=== PATIENT | male | born 1975 | race African-American/Black ===

== ENCOUNTER 2016-10-09 18:08 | Emergency (ER) | payer OTHER | END 2016-10-09 18:36 | disposition home or self-care (01) | LOC: BURERS 18:08 | DX: K40.90 Unilateral inguinal hernia, without obstruction or gangrene, not specified as recurrent (principal); E11.9 Type 2 diabetes mellitus without complications; J45.909 Unspecified asthma, uncomplicated; E78.5 Hyperlipidemia, unspecified; J44.9 Chronic obstructive pulmonary disease, unspecified; I11.0 Hypertensive heart disease with heart failure; I50.9 Heart failure, unspecified; I42.9 Cardiomyopathy, unspecified; Z87.891 Personal history of nicotine dependence | CPT/HCPCS: 99283 ==

== ENCOUNTER 2017-03-24 09:48 | Emergency (ER) | payer OTHER ==
[2017-03-24] MEDS ORDERED: Benzonatate 100 MG CAP ONE (10:34)
[2017-03-24] MEDS ORDERED: Oseltamivir 75 MG CAP ONE (10:34)
[2017-03-24 10:51] LABS: Hemoglobin 18.4 g/dL (14.0-18.0); Mean Corpuscular HGB CONC 32.6 g/dL (32.0-36.0); Mean Corpuscular Hemoglobin 26.6 pg (27.0-31.0); Mean Corpuscular Volume 81.7 fl (80.0-94.0); Mean Platelet Volume 8.5 fL (7.4-10.4); Platelet Count 190 thou/uL (130-400); RBC Distribution Width 11.7 % (11.5-14.5); Red Blood Cell (RBC) Count 6.92 mill/uL (4.70-6.10); White Blood Cell (WBC) Count 3.5 thou/uL (4.8-10.8)
[2017-03-24 11:02] LABS: ALT (SGPT) 28 U/L (8-55); AST (SGOT) 34 U/L (5-34); Albumin 3.8 g/dL (3.5-5.0); Alkaline Phosphatase 64 U/L (40-150); Anion Gap 15 mmol/L (10-20); BUN (Urea Nitrogen) 12 mg/dL (8.9-20.6); Bilirubin, Total 0.3 mg/dL (0.2-1.2); Calc. Creatinine Clearance 0 mL/min (70-130); Calcium 9.4 mg/dL (7.8-10.44); Carbon Dioxide 21 mmol/L (22-29); Chloride 102 mmol/L (98-107); Estimated GFR-MDRD Greater than 90; Glucose 95 mg/dL (70-105); Potassium 4.3 mmol/L (3.5-5.1); Protein, Total 7.8 g/dL (6.0-8.3); Sodium 134 mmol/L (136-145)
[2017-03-24 11:11] LABS: Eosinophils 2 % (0-10); Lymphocytes 38 % (21-51); MDiff Complete? YES; Monocytes 12 % (0-10); Neutrophil 48 % (42-75); PLT Morphology Comment Appears Adequate; RBC Morphology Normal
--- NOTE | 2017-03-24 19:18 | RAD ---
CHEST TWO VIEWS 03/24/17 Comparison is made with the 04/23/14 study done at [facility]. The heart is mildly enlarged but there are no congestive changes or pleural effusions. A unipolar car diac pacer/AICD device is seen in place. There is a little additional haziness over the right lung base than before. I cannot exclude an early infiltrate here. The left lung seems clear. The trachea is midline. IMPRESSION: Suspicion of a minimal right basilar infiltrate. Code T POS: HOME
== END 2017-03-24 11:32 | disposition home or self-care (01) ==
LOC: BURERS 09:48
DX: J11.1 Influenza due to unidentified influenza virus with other respiratory manifestations (principal); E11.9 Type 2 diabetes mellitus without complications; J45.909 Unspecified asthma, uncomplicated; I11.0 Hypertensive heart disease with heart failure; I50.9 Heart failure, unspecified; E78.5 Hyperlipidemia, unspecified; Z87.891 Personal history of nicotine dependence; E66.9 Obesity, unspecified
CPT/HCPCS: 36415; 71046; 80053; 85025; 94640; J7620

== ENCOUNTER 2017-09-22 13:39 | Outpatient (CLI) | payer OTHER ==
--- NOTE | 2017-09-22 20:17 | RAD ---
LEFT HIP TWO VIEWS 09/22/17 Severe arthritic changes are seen in the left hip joint with nearly complete obliteration of joint sp fady, bony sclerosis and osteophytes. Subchondral cysts are seen in the femoral head and probably in t he acetabulum as well. Additionally, the femoral head is rather sclerotic. There may be an element of osteonecrosis along the articular surfaces. The head does look slightly deformed. I cannot exclude t he possibility of an old injury to this hip. An acute one is not appreciated. IMPRESSION: Very severe arthritic changes. Given the patient's young age, my presumption is that this may be due to prior trauma. POS: HOME
--- NOTE | 2017-09-22 20:24 | RAD ---
LEFT FEMUR TWO VIEWS: 09/22/17 The hip films describe the severe arthritic and cystic changes seen in the femoral head. The remainde r of the femur appears intact and is normal in appearance. No fracture, bony destruction, or perioste al reaction was seen elsewhere. IMPRESSION: No acute findings in the remainder of the femur. POS: HOME
== END 2017-09-22 13:40 | disposition home or self-care (01) ==
LOC: BURRAD 13:39
PROVIDERS: ATTEND Family Medicine
DX: M25.552 Pain in left hip (principal); M16.12 Unilateral primary osteoarthritis, left hip